=== PATIENT | female | born 1965 | race Caucasian/White ===

== ENCOUNTER 2023-10-15 15:35 | Emergency (ER) | payer OTHER ==
[2023-10-15 16:05] VITALS: PULSE 83; RESP 18
--- NOTE | 2023-10-15 16:32 | ED ---
Upper Extremity HPI - General Chief Complaint: Extremity Injury, Upper Stated Complaint: Pain in R wrist Time Seen by Provider: 10/15/23 16:29 Source: patient, RN notes reviewed Mode of arrival: ambulatory Limitations: no limitations - History of Present Illness Initial Comments: 58-year-old female presenting with right wrist pain x 1 day. States she has a "bad wrist" and had right wrist surgery years ago. States she may have "overdone it" yesterday and is experiencing pain to touch on the wrist and into the base of thumb. States she may have bumped it however denies any known trauma or injury. Denies history of gout. Denies fevers or chills. - Related Data Home Medications Medication Instructions Recorded Confirmed ALPRAZolam [Xanax] 1 mg PO BID PRN 02/20/16 02/20/16 Albuterol Inhaler [Ventolin Hfa 1 - 2 puff INHALATION RT-Q6H PRN 02/20/16 02/20/16 Inhaler] Simvastatin [Zocor] 40 mg PO HS 02/20/16 02/20/16 Previous Rx's Medication Instructions Recorded Indomethacin [Indocin] See Taper PO TID #30 capsule 10/15/23 predniSONE 10 mg PO DIRECTED 8 Days #20 tab 10/15/23 Allergies Allergy/AdvReac Type Severity Reaction Status Date / Time No Known Allergies Allergy Verified 02/20/16 19:59 Review of Systems ROS Statement: Those systems with pertinent positive or pertinent negative responses have been documented in the HPI. ROS Other: All systems not noted in ROS Statement are negative. Past Medical History Past Medical History: Diabetes Mellitus, Hypertension, Osteoarthritis (OA) Additional Past Medical History / Comment(s): betathiasethia anemia, type 2 Diabetes, Migraines History of Any Multi-Drug Resistant Organisms: None Reported Past Surgical History: Appendectomy, Section, Cholecystectomy Past Psychological History: No Psychological Hx Reported, Anxiety Smoking Status: Former smoker Past Alcohol Use History: None Reported Past Drug Use History: None Reported General Exam - General Exam Comments Initial Comments: Visual Physical Exam Vital signs reviewed General: Well-appearing, nontoxic, no acute distress. Head: Normocephalic, atraumatic Eyes: PERRLA, EOMI ENT: Airway patent Chest: Nonlabored breathing Skin: No visual rash, normal skin tone Neuro: Alert and oriented 3 Musculoskeletal: No gross abnormalities Limitations: no limitations General appearance: alert, in no apparent distress Head exam: Present: atraumatic, normocephalic, normal inspection Eye exam: Present: normal appearance, PERRL, EOMI. Absent: scleral icterus, conjunctival injection, periorbital swelling ENT exam: Present: normal exam, mucous membranes moist Neck exam: Present: normal inspection. Absent: tenderness, meningismus, lymphadenopathy Respiratory exam: Present: normal lung sounds bilaterally. Absent: respiratory distress, wheezes, rales, rhonchi, stridor Cardiovascular Exam: Present: regular rate, normal rhythm, normal heart sounds. Absent: systolic murmur, diastolic murmur, rubs, gallop, clicks Right Elbow exam: Present: normal inspection, full ROM. Absent: tenderness, swelling Forearm Wrist exam: Present: normal inspection, full ROM. Absent: tenderness, swelling Hand Wrist exam: Absent: normal inspection (1st Metacarpal phalangeal joint is erythematous and tender to palpation. Full range of motion of metacarpal phalangeal joint and DIP joint. No snuffbox tenderness) Vascular: Absent: vascular compromise (full sensation, cap refill less than 2 seconds) Course Vital Signs 10/15/23 10/15/23 16:02 19:18 Temperature 98.5 F 98.3 F Pulse Rate 83 83 Respiratory 18 18 Rate Blood Pressure 168/112 132/90 O2 Sat by Pulse 96 97 Oximetry Medical Decision Making - Medical Decision Making I completed the quick note portion of this chart signed Regina Kunz PA-C Was pt. sent in by a medical professional or institution (, [facility], CERTIFIED MEDICAL CODER, urgent care, hospital, or penitentiary...) When possible be specific @ -No Did you speak to anyone other than the patient for history (EMS, parent, family, police, friend...)? What history was obtained from this source @ -No Did you review nursing and triage notes (agree or disagree)? Why? @ -I reviewed and agree with nursing and triage notes Were old charts reviewed (outside hosp., previous admission, EMS record, old EKG, old radiological studies, urgent care reports/EKG's, penitentiary records)? Report findings @ -No old charts were reviewed Differential Diagnosis (chest pain, altered mental status, abdominal pain women, abdominal pain men, vaginal bleeding, weakness, fever, dyspnea, syncope, headache, dizziness, GI bleed, back pain, seizure, CVA, palpatations, mental health, musculoskeletal)? @ -Differential Musculoskeletal Muscular strain, contusion, ligament sprain, fracture, arthritis, septic arthritis, bursitis, cellulitis, muscle spasm, nerve compression, DVT, arterial occlusion, herpes zoster, electrolyte abnormality, tumor.... This is not meant to be in all inclusive list EKG interpreted by me (3pts min.). @ -None X-rays interpreted by me (1pt min.). @ -X-ray of right wrist reveals no acute fracture or dislocation, well-defined 7 mm ossification of radial base of first metacarpal adjacent to trapezium CT interpreted by me (1pt min.). @ -None done U/S interpreted by me (1pt. min.). @ -None done What testing was considered but not performed or refused? (CT, X-rays, U/S, labs)? Why? @ -Lab work considered and discussed with patient to obtain uric acid levels and rule out septic arthritis. Patient declines labs at this time and states she will follow-up with her PCP. What meds were considered but not given or refused? Why? @ -Steroid injection not given due to patient has history of type 2 diabetes Did you discuss the management of the patient with other professionals (professionals i.e. , PA, CERTIFIED MEDICAL CODER, lab, RT, psych nurse, social science manager, clinical dietitian, teacher, intelligence officer basic, director case management)? Give summary @ -No Was smoking cessation discussed for >3mins.? @ -No Was critical care preformed (if so, how long)? @ -No Were there social determinants of health that impacted care today? How? (Homelessness, low income, unemployed, alcoholism, drug addiction, transportation, low edu. Level, literacy, decrease access to med. care, longterm, rehab)? @ -No Was there de-escalation of care discussed even if they declined (Discuss DNR or withdrawal of care, Hospice)? DNR status @ -No What co-morbidities impacted this encounter? (DM, HTN, Smoking, COPD, CAD, Cancer, CVA, ARF, Chemo, Hep., AIDS, mental health diagnosis, sleep apnea, morbid obesity)? @ -None Was patient admitted / discharged? Hospital course, mention meds given and route, prescriptions, significant lab abnormalities, going to OR and other pertinent info. @ -Patient was discharged. Patient was seen and evaluated for right wrist pain x 1 day. Patient is neurovascularly intact. No red flag symptoms. There is no sign of bacterial infection. History and physical exam consistent with diagnosis of gout. X-ray of wrist reveals no acute fracture or dislocation, there is a well-defined 7 mm ossification at radial base of first metacarpal adjacent to trapezium, likely due to old injury. Patient given Toradol injection for pain which she states relieved symptoms. Diagnosis of gout discussed with patient in detail. Advised to follow-up with PCP in 1 to 3 days for reevaluation. Strict return/alarm symptoms discussed with patient in detail and she shows understanding and agrees to plan. Prescribed prednisone taper and indomethacin to start tomorrow. Case discussed with my attending Dr. Villarreal. Patient discharged in stable condition. Undiagnosed new problem with uncertain prognosis? @ -No Drug Therapy requiring intensive monitoring for toxicity (Heparin, Nitro, Insulin, Cardizem)? @ -No Were any procedures done? @ -No Diagnosis/symptom? @ -Gout of right hand Acute, or Chronic, or Acute on Chronic? @ -Acute Uncomplicated (without systemic symptoms) or Complicated (systemic symptoms)? @ -Uncomplicated Side effects of treatment? @ -No Exacerbation, Progression, or Severe Exacerbation? @ -No Poses a threat to life or bodily function? How? (Chest pain, [place], [place], pneumonia, PE, COPD, DKA, ARF, appy, cholecystitis, CVA, Diverticulitis, Homicidal, Suicidal, threat to staff... and all critical care pts) @ -Low likelihood Disposition Clinical Impression: Gout of right hand Disposition: HOME SELF-CARE Condition: Stable Instructions (If sedation given, give patient instructions): Gout (ED) Additional Instructions: Please follow-up with PCP in 1 to 3 days. Please return to the Emergency Department if symptoms worsen or any other concerns. Prescriptions: Indomethacin [Indocin] See Taper PO TID #30 capsule predniSONE 10 mg PO DIRECTED 8 Days #20 tab Is patient prescribed a controlled substance at d/c from ED?: No Referrals: Jam Heredia DO [Primary Care Provider] - 1-2 days Time of Disposition: 19:07
--- NOTE | 2023-10-15 18:20 | XR ---
EXAMINATION TYPE: XR wrist complete RT DATE OF EXAM: 10/15/2023 CLINICAL HISTORY: Pain TECHNIQUE: Frontal, lateral and oblique images of the right wrist are obtained. Fourth scaphoid view is acquired. COMPARISON: None FINDINGS: There is no acute fracture/dislocation evident in the right wrist. At the radial base of the first metacarpal adjacent to the trapezium areas well-defined oval 7 mm ossific density could ref lect product of old avulsion fracture or heterotopic ossification. The carpal joint spaces are mainta ined. The overlying soft tissue appears unremarkable. IMPRESSION: As above.
[2023-10-15] MEDS: KETOROLAC 15 MG/ML 1 ML VIAL IM STA (18:44)
[2023-10-15 19:20] VITALS: BP 132/90; TEMP 98.3
== END 2023-10-15 19:20 | disposition home or self-care (01) ==
LOC: EC 15:35
DX: M10.9 Gout, unspecified (principal); Z87.891 Personal history of nicotine dependence
CPT/HCPCS: 73110; 99283; 96372; J1885